=== PATIENT | female | born 1980 | race Two or more races ===

== ENCOUNTER 2016-11-22 16:51 | Emergency (ER) | payer MEDICAID ==
[~2016-11-22] VITALS: Ht 152.4 cm; Wt 51.3 kg
[2016-11-22 16:51] VITALS: BP 101/63
== END 2016-11-22 17:41 | disposition home or self-care (01) ==
LOC: ER 16:55
DX: J06.9 Acute upper respiratory infection, unspecified (principal)
CPT/HCPCS: A4606; Z7610

== ENCOUNTER 2018-08-31 11:12 | Emergency (ER) | payer MEDICAID ==
[~2018-08-31] VITALS: Ht 152.4 cm; Wt 59.0 kg
[2018-08-31 11:22] VITALS: BP 107/70
--- NOTE | 2018-08-31 11:42 | NUR ---
Patient discharged to home in stable condition. Written and verbal after care instructions given. Patient verbalizes understanding of instruction.
== END 2018-08-31 11:42 | disposition home or self-care (01) ==
LOC: ER 11:12
DX: J06.9 Acute upper respiratory infection, unspecified (principal)
CPT/HCPCS: Z7502